=== PATIENT | female | born 1965 | race Caucasian/White ===

== ENCOUNTER 2023-04-07 19:51 | Emergency (ER) | payer OTHER ==
[~2023-04-07] VITALS: Ht 154.9 cm; Wt 54.4 kg
[2023-04-07 19:55] VITALS: BP 148/80; PULSE 72; RESP 10; TEMP 97.9; O2SAT 94
[2023-04-07 20:00] VITALS: BP 146/80; PULSE 72; RESP 14; O2SAT 96
[2023-04-07] MEDS ORDERED: KETOROLAC 60 MG/2 ML VIAL IM ONE (20:05)
[2023-04-07] MEDS ORDERED: TRAM50TA3 PO (21:48)
[2023-04-07] MEDS ORDERED: IBUP-2213 PO (21:48)
== END 2023-04-07 21:50 | disposition home or self-care (01) ==
LOC: MED 19:51
DX: M25.512 Pain in left shoulder (principal); R11.0 Nausea; Z98.890 Other specified postprocedural states
CPT/HCPCS: 73030; 96372; 99283; J1885